=== PATIENT | female | born 1980 | race Caucasian/White ===

== ENCOUNTER 2017-12-05 06:48 | Emergency (ER) | payer OTHER ==
[2017-12-05] MEDS ORDERED: ONDANSETRON 4 MG/2 ML VIAL ONE (07:03)
[2017-12-05] MEDS ORDERED: NS 1,000 ML IV ONE (07:11)
[2017-12-05] MEDS ORDERED: ONDANSETRON 4 MG/2 ML VIAL IVP ONE (07:11)
--- NOTE | 2017-12-05 07:20 | EDPHY ---
H & P Stated Complaint: N/V since midnight Time Seen by Provider: 12/05/17 07:20 - Personal History LMP (Females 10-55): Irregular Current Tetanus/Diphtheria Vaccine: Unsure Current Tetanus Diphtheria and Acellular Pertussis (TDAP): Unsure - Medical/Surgical History Hx Asthma: Yes Hx Chronic Respiratory Disease: No Hx Diabetes: No Hx Cardiac Disease: No Hx Renal Disease: No Hx Cirrhosis: No Hx Alcoholism: No Hx HIV/AIDS: No Hx Splenectomy or Spleen Trauma: No Other PMH: MIGRAINES ASTHMA - Social History Smoking Status: Never smoked Constitutional: Initial Vital Signs Temperature (C) 36.6 C 12/05/17 06:49 Heart Rate 74 12/05/17 06:49 Respiratory Rate 16 12/05/17 06:49 Blood Pressure 107/65 12/05/17 06:49 O2 Sat (%) 100 12/05/17 06:49 O2 Delivery Mode Room Air Allergies/Adverse Reactions: codeine Allergy (Verified 05/31/15 03:44) shrimp Allergy (Verified 05/31/15 07:49) Sulfa (Sulfonamide Antibiotics) Allergy (Verified 05/31/15 03:44) Home Medications: Medication Instructions Recorded Cyclobenzaprine [Flexeril 10 MG 10 mg PO DAILY PRN 05/31/15 (*)] Doxycycline Hyclate [Vibramycin 100 mg PO BID 05/31/15 100 MG (*)] Herbals/Supplements -Info Only 1 ea PO DAILY 05/31/15 Multivitamins [Multivitamin (*)] 1 each PO DAILY 05/31/15 Omeprazole 40 mg PO DAILY 05/31/15 Tretinoin [RETIN-A] 1 trista TP HS 05/31/15 Cetirizine [Zyrtec 10 Mg (Rx)] 0 mg PO HS 06/01/15 Ethinyl Estradiol/Drospirenone 0 each PO DAILY 06/01/15 [Maria Ines 28 Tablet] Hydrocodone/APAP 5/325 [[place] 2 tab PO Q4 PRN #20 tab 06/01/15 5/325 (*)] Montelukast Sodium [Singulair 10 10 mg PO DAILY@1800 #0 tab 06/01/15 mg (*)] Topiramate [Topamax 100MG (*)] 100 mg PO HS #0 tab 06/01/15 buPROPion XL [Wellbutrin 150mg XL] 300 mg PO DAILY #0 tab 06/01/15 Cetirizine [ZyrTEC 10 mg (*)] 10 mg PO DAILY PRN #0 tab 06/03/15 Medical Decision Making ED Course/Re-evaluation: CHIEF COMPLAINT: headache, N/V HISTORY OF PRESENT ILLNESS: The patient is a 37 y/o female with a history of migraines arriving with her complaining of a progressive headache since last night and nausea and vomiting onset this morning upon waking. Her headache feels consistent with prior migraines; however, the nausea and vomiting is much more severe that what she has experienced previously. She has associated photophobia. Home treatments including lidocaine nasal spray have not alleviated symptoms. She denies abdominal pain, weakness, paresthesias, speech difficulty, or other acute complaints. No recent illness or trauma. REVIEW OF SYSTEMS: A comprehensive 10 system review of systems is otherwise negative aside from elements mentioned in the history of present illness and medical decision making. PHYSICAL EXAM: HR, BP, O2 Sat, RR. Temp noted General Appearance: Alert, well hydrated, appropriate, and appears uncomfortable. Head: Atraumatic without scalp tenderness or obvious injury Eyes: Pupils equal, round, reactive to light and accommodation, EOMI, no trauma , no injection. Nose: Atraumatic, no rhinorrhea, clear. Throat: Mucus membranes moist. Neck: Supple, nontender, no lymphadenopathy. Respiratory: No retractions, no distress, no wheezes, and no accessory muscle use. Lungs are clear to auscultation bilaterally. Cardiovascular: Regular rate and rhythm, no murmurs, rubs, or gallops. Good capillary refill all extremities. Gastrointestinal: Abdomen is soft, nontender, non-distended, no masses, no rebound, no guarding, no peritoneal signs. Musculoskeletal: Normal active ROM of all extremities, atraumatic. Neurological: Alert, appropriate, and interactive. The patient has non-focal cranial nerves, motor, sensory, and cerebellar exam. Skin: No rashes, good turgor, no nodules on palpation. Past medical history: Migraines - followed by neurologist Past surgical history: Cholecystectomy Family history: Noncontributory Social history: at bedside. Lives in [place]. Employed. DIFFERENTIAL DIAGNOSIS: The differential diagnosis for the patient's headache included but was not limited to subarachnoid hemorrhage, migraine headache, tension headache and infectious causes such as meningitis, pharyngitis and sinusitis. MEDICAL DECISION MAKING: This is a 37 y/o female with a long history of migraines who presents with a 12- hour history of progressive migraine headache now associated with nausea and vomiting. Her headache feels the same as prior migraines. She has a nonfocal neuro exam. No indication for imaging at this time. Plan for symptomatic treatment with 30mg IV Toradol, 10mg IV Decadron, 10mg IV Reglan, 4mg IV Zofran , and 1L IV NS. 0807: Reassessed patient. Her nausea has mostly improved, but she continues to have headache and photophobia. Discussed further treatment options and she opted to try Ketamine. Risks and benefits discussed. 10mg IV Ketamine ordered. 0834: Reassessed patient. Headache has improved with Ketamine, but is still present. Additional dose of 10mg IV Ketamine ordered. 0930: Reassessed patient. She is feeling significantly improved and is ready to go home. She will be discharged with standard care and follow up instructions. Return precautions discussed. - Data Points Medications Given: Discontinued Medications Dexamethasone (Decadron Injection) 10 mg IVP EDNOW ONE Stop: 12/05/17 07:24 Last Admin: 12/05/17 07:32 Dose: 10 mg Sodium Chloride (Ns) 1,000 mls @ 0 mls/hr IV ONCE ONE PRN Reason: Wide Open Stop: 12/05/17 07:12 Last Admin: 12/05/17 07:12 Dose: 1,000 mls Ketamine HCl (Ketamine) 10 mg IVP EDNOW ONE Stop: 12/05/17 08:10 Last Admin: 12/05/17 08:20 Dose: 10 mg Ketamine HCl (Ketamine) 10 mg IVP EDNOW ONE Stop: 12/05/17 08:35 Last Admin: 12/05/17 08:37 Dose: 10 mg Ketorolac Tromethamine (Toradol) 30 mg IVP EDNOW ONE Stop: 12/05/17 07:24 Last Admin: 12/05/17 07:31 Dose: 30 mg Metoclopramide HCl (Reglan Injection) 10 mg IVP EDNOW ONE Stop: 12/05/17 07:24 Last Admin: 12/05/17 07:33 Dose: 10 mg Ondansetron HCl (Zofran) 4 mg IVP EDNOW ONE Stop: 12/05/17 07:12 Last Admin: 12/05/17 07:12 Dose: 4 mg Departure - Departure Disposition: Home, Routine, Self-Care Clinical Impression: Migraine Qualifiers: Migraine type: other Status migrainosus presence: without status migrainosus Intractability: not intractable Qualified Code(s): G43.809 - Other migraine, not intractable, without status migrainosus Condition: Good Instructions: Migraine Headache (ED) Additional Instructions: Follow up with your neurologist as needed. Return to the ED for any worsening of condition. Referrals: NIKHIL MORENO [Primary Care Provider] - As per Instructions Report Scribed for: Greg Olson Report Scribed by: Tennille Gonzalez Date of Report: 12/05/17 Time of Report: 08:07
[2017-12-05] MEDS ORDERED: DEXAMETHASONE 10 MG/ML VIAL IVP ONE (07:23)
[2017-12-05] MEDS ORDERED: KETOROLAC 30 MG/1 ML SDV IVP ONE (07:23)
[2017-12-05] MEDS ORDERED: METOCLOPRAMIDE 10 MG/2 ML VIAL IVP ONE (07:23)
[2017-12-05] MEDS ORDERED: DEXAMETHASONE 4 MG/ML VIAL ONE (07:27)
[2017-12-05] MEDS ORDERED: KETAMINE 200 MG/20 ML VIAL IVP ONE ×2 (08:09→08:34)
[2017-12-05 09:42] VITALS: BP 98/67
== END 2017-12-05 09:40 | disposition home or self-care (01) ==
DX: G43.809 Other migraine, not intractable, without status migrainosus (principal); E86.9 Volume depletion, unspecified
CPT/HCPCS: 96374; J1100; J1885; J2405; J2765